=== PATIENT | male | born 1945 | race Caucasian/White ===

== ENCOUNTER 2020-01-26 09:47 | Emergency (ER) | payer MEDICARE, OTHER ==
[~2020-01-26] VITALS: Ht 180.3 cm; Wt 103.0 kg
[2020-01-26] MEDS ORDERED: SODIUM CHLORIDE FLUSH 10ML SYR IVF ONE ×2 (10:30→11:00)
[2020-01-26] MEDS ORDERED: PLEASE ENTER ALLERGIES MC SCH (10:30)
[2020-01-26] MEDS ORDERED: LIDOCAINE 1%-EPI 1:100K, 20ML SQ ONE (10:30)
[2020-01-26] MEDS ORDERED: SODIUM CHLORIDE 0.9% 1,000ML IVBOLUS ONE (10:30)
[2020-01-26] MEDS ORDERED: LIDOCAINE 1%-EPI 1:100K, 20ML ONE (10:52)
--- NOTE | 2020-01-26 10:58 | NUR ---
L ARM SKIN TEAR CLEANED/IRRIGATED. OPTIFOAM PLACED. PA VISUALIZED WOUND. L HEAD LAC/ABRASION CLEANED/IRRIGATED. PLAN FOR CT AND SUTURES. PT A&OX4 GCS 15 DECLINED PAIN MEDS.
--- NOTE | 2020-01-26 11:30 | NUR ---
back from ct labs sent pa at bedside for sutures. as
[2020-01-26 11:45] LABS: INTERNATIONAL NORMALIZED RATIO 0.96 (0.93-1.1); PROTHROMBIN TIME 10.2 Seconds (9.6-11.5)
[2020-01-26 11:46] LABS: ALBUMIN 3.2 g/dL (3.4-5.0); ANION GAP 3 mmol/L (5-15); CALCIUM 8.5 mg/dL (8.5-10.1); CHLORIDE 110 mmol/L (98-107)
--- NOTE | 2020-01-26 11:51 | NUR ---
STS GOT TETANUS 3-5 YEARS AGO PA AWARE.
[2020-01-26 11:52] LABS: ALANINE AMINOTRANSFERASE 27 U/L (12-78); ALKALINE PHOSPHATASE 76 U/L (45-117); CREATININE 0.89 mg/dL (0.7-1.3); TOTAL PROTEIN 6.3 g/dL (6.4-8.2)
[2020-01-26 11:54] LABS: BILIRUBIN,TOTAL 1.1 mg/dL (0.2-1.0)
[2020-01-26 12:22] LABS: MEAN CORPUSCULAR HEMOGLOBIN 36.3 pg (27.5-34.5); MEAN CORPUSCULAR HGB CONC 34.3 g/dL (33.2-36.2); RED BLOOD COUNT 2.79 x10^6/uL (4.38-5.82); RED CELL DISTRIBUTION WIDTH 18.4 % (9.4-14.8)
[2020-01-26 12:23] LABS: MD YES; MEAN PLATELET VOLUME 9.1 fL (7.4-10.4); PLATELET COUNT 33 x10^3/uL (130-400)
[2020-01-26] MEDS ORDERED: NEOSPORIN OINT. PKT 1 PACKET ONE (12:26)
[2020-01-26 12:31] LABS: BAND#(MANUAL) 0.05 x10^3/uL; BANDS%(MANUAL) 5 % (0-7); LYMPH#(MANUAL) 0.38 x10^3/uL (1-3.4); LYMPHS% (MANUAL) 38 % (22-44); MONOS#(MANUAL) 0.02 x10^3/uL (0.3-2.7); MONOS% (MANUAL) 2 % (2-9); SEG#(MANUAL) 0.53 x10^3/uL (1.8-6.8); SEGS% (MANUAL) 53 % (42-75)
[2020-01-26 12:32] LABS: OTHER CELLS # (MANUAL) 0.02 x10^3/uL (0-0); OTHER CELLS % (MANUAL) 2 % (0-0)
[2020-01-26 12:37] LABS: ANISOCYTOSIS 1+
[2020-01-26 12:38] LABS: <PLATELET ESTIMATE> DECREASED; <PLT MORPHOLOGY> NORMAL PLT MORPH; OVALOCYTES 1+
--- NOTE | 2020-01-26 12:59 | NUR ---
wounds on face cleaned and dressed. plan for xr for L shoulder to r/o clavicle fx. urinal given to pt. as
--- NOTE | 2020-01-26 13:36 | NUR ---
xr neg. as
[2020-01-26 14:17] VITALS: BP 145/70
== END 2020-01-26 14:19 ==
LOC: ED 12:26
DX: S01.81XA Laceration without foreign body of other part of head, initial encounter (principal); S40.012A Contusion of left shoulder, initial encounter; R55 Syncope and collapse; R42 Dizziness and giddiness; M19.011 Primary osteoarthritis, right shoulder; W22.8XXA Striking against or struck by other objects, initial encounter; Y93.89 Activity, other specified; Y92.89 Other specified places as the place of occurrence of the external cause; Y99.8 Other external cause status
CPT/HCPCS: 12052; 36415; 70450; 70486; 72125; 73030; 80053; 84484; 85025; 85610; 85730; 93005; 96360; 96361; 99285; J7030

== ENCOUNTER → 2020-01-28 | Outpatient (CLI) | payer MEDICARE, OTHER | END | disposition home or self-care (01) | LOC: WOUND 12:51 | PROVIDERS: ATTEND Family Medicine | DX: S51.812A Laceration without foreign body of left forearm, initial encounter (principal); S01.81XA Laceration without foreign body of other part of head, initial encounter; C92.00 Acute myeloblastic leukemia, not having achieved remission; M19.011 Primary osteoarthritis, right shoulder; W20.8XXA Other cause of strike by thrown, projected or falling object, initial encounter; Y93.89 Activity, other specified; Y92.89 Other specified places as the place of occurrence of the external cause; Y99.8 Other external cause status | CPT/HCPCS: G0463 ==